=== PATIENT | male | born 1970 | race Caucasian/White ===

== ENCOUNTER 2019-03-01 11:02 | Inpatient (IN) | payer BC ==
[~2019-03-01] VITALS: Ht 182.9 cm; Wt 94.5 kg
[~2019-03-01 11:02] MED LIST: LISINOPRIL10 MG PO
[2019-03-01 11:19] LABS: HEMATOCRIT 44.6 % (42.0-54.0); HEMOGLOBIN 15.5 g/dL (13.5-17.5); MCH 29.7 pg (26.0-34.0); MCHC 34.8 g/dL (31.0-37.0); MCV 85.4 fL (80.0-100.0); MEAN PLATELET VOLUME 10.3 fL (7.4-10.4); RBC 5.22 10x6/uL (4.20-6.10); RDW 13.7 % (11.5-14.5); WBC 5.2 10x3/uL (4.8-10.8)
[2019-03-01 11:55] VITALS: BP 141/95; BMI 28.8
--- NOTE | 2019-03-01 17:19 | NUR ---
REPORT TAKEN FROM Radha MACHUCA RN. PATIENT CARE ASSUMED AT THIS TIME.
[2019-03-01 17:58] VITALS: BP 120/67
[2019-03-01 18:00] VITALS: BP 120/67; Ht 182.9 cm; Wt 94.5 kg
--- NOTE | 2019-03-01 18:00 | NUR ---
RECEIVED TO ROOM 2208 VIA STRETCHER FROM PACU. A/O X3. SKIN INTACT WITHOUT REDNESS EXCEPT 6 SMALL INSERTION SITES TO ABDOMEN. VSS. DENIES NEEDS.
--- NOTE | 2019-03-01 18:30 | NUR ---
C/O NAUSEA. GIVEN 4MG ZOFRAN SLOW IVP FOR SAME. WILL MONITOR. CAFETERIA CASHIER INITIATED WELL. AT BEDSIDE. DENIES FURTHER NEEDS.
--- NOTE | 2019-03-01 19:06 | NUR ---
CONTINUED C/O NAUSEA. GIVEN EMESIS BAG AT THIS TIME. GLASSES PLACED PER . IS STARTING TO FEEL BETTER. REFUSED PHENERGAN AT THIS TIME.
[2019-03-01 21:35] VITALS: BP 98/68
[2019-03-02 04:44] VITALS: BP 107/70
[2019-03-02 05:20] LABS: BASOPHILS 0.1 % (0-2); EOSINOPHILS 0 % (0-7); HEMATOCRIT 40.6 % (42.0-54.0); HEMOGLOBIN 13.8 g/dL (13.5-17.5); IMMATURE GRANULOCYTES 0.2 % (0-5); LYMPHOCYTES 6.9 % (15-50); MCH 28.9 pg (26.0-34.0); MCV 85.1 fL (80.0-100.0); MEAN PLATELET VOLUME 11.1 fL (7.4-10.4); NEUTROPHILS 87.8 % (40-80); PLATELET COUNT 211 10x3/uL (130-400); RBC 4.77 10x6/uL (4.20-6.10); RDW 13.8 % (11.5-14.5)
[2019-03-02 05:32] LABS: WBC 10.5 10x3/uL (4.8-10.8)
[2019-03-02 05:41] LABS: ALBUMIN 3.1 g/dL (3.4-5.0); ALKALINE PHOSPHATASE 36 U/L (46-116); ALT (SGPT) 75 U/L (10-68); BILIRUBIN - TOTAL 0.76 mg/dL (0.2-1.3); CALC OSMOLALITY 276 mosm/kg (275-300); CARBON DIOXIDE 23.3 mmol/L (21.0-32.0); CHLORIDE - SERUM 105 mmol/L (98-107); GLUCOSE 116 mg/dL (74-106); POTASSIUM - SERUM 4.3 mmol/L (3.5-5.1); PROTEIN - SERUM 5.8 g/dL (6.4-8.2); SODIUM 138 mmol/L (136-145); UREA NITROGEN 13 mg/dL (7-18); eGFR NON AFRICAN AMERICAN 84 mL/min (90-120)
--- NOTE | 2019-03-02 07:56 | NUR ---
AMBULATED IN HALLWAY WITH . AWAKE AND ALERT. ORIENTED X3. LUNGS ARE CLEAR BILATERALLY, NO COUGH NOTED. SKIN IS INTACT WITHOUT REDNESS EXCEPT 6 SMALL INSERTION SITES TO ABDOMEN WHICH ARE CLEAN AND DRY. IV TO LEFT HAND IS PATENT WITHOUT REDNESS AT INSERTION SITE. DENIES NEEDS. AT BEDSIDE.
[2019-03-02 08:17] VITALS: BP 115/82
--- NOTE | 2019-03-02 10:15 | NUR ---
OFF UNIT VIA FOR EXRAY.
--- NOTE | 2019-03-02 10:32 | NUR ---
RETURNED FROM EXRAY. DENIES NEEDS.
[2019-03-02] MEDS ORDERED: HYDROCODON-ACE1 EAC7 PO (11:09)
[2019-03-02] MEDS ORDERED: ZOFRAN ODT4 MG/UDTAB PO (11:09)
--- NOTE | 2019-03-02 13:00 | NUR ---
DISCHARGED TO HOME AMBULATORY WITH . DISCHARGE INSTRUCTIONS GIVEN BOTH VERBALLY AND WRITTEN. ALL QUESTIONS ANSWERED. PATIENT AND VERBALIZED UNDERSTANDING OF SAME. IV LEFT HAND D/C WITH CATHETER INTACT. NEEDED PRESCRIPTIONS ESCRIBED TO PHARMACY OF CHOICE. ALL BELONGINGS WITH PATIENT.
== END 2019-03-02 13:41 | disposition home or self-care (01) | DRG 328 ==
LOC: D.OPS 11:02 → D.PAN 13:00 → D.OPS 13:00 → D.MS 17:05 → D.OPS 03-02 12:37 → D.MS 03-02 12:38
PROVIDERS: Anesthesiology; ADMIT Surgery; ATTEND Surgery
PROC: 0BUT4JZ Supplement Diaphragm with Synthetic Substitute, Percutaneous Endoscopic Approach (ICD-10-PCS; principal; 2019-03-01 13:00)
DX: K44.9 Diaphragmatic hernia without obstruction or gangrene (principal); I10 Essential (primary) hypertension

== ENCOUNTER 2019-10-06 05:35 | Day surgery (SDC) | payer BC ==
[~2019-10-06] VITALS: Ht 182.9 cm; Wt 93.4 kg
[~2019-10-06 05:35] MED LIST changes: +HYDROCODON-ACE1 EAC7 PO; +MULTI-DAY VITAM1 TAB PO; +ZOFRAN ODT4 MG/UDTAB PO
[2019-10-06 06:07] LABS: BASOPHILS 0.8 % (0-2); EOSINOPHILS 8.5 % (0-7); HEMATOCRIT 44.1 % (42.0-54.0); HEMOGLOBIN 14.9 g/dL (13.5-17.5); IMMATURE GRANULOCYTES 0.2 % (0-5); LYMPHOCYTES 28.6 % (15-50); MCH 29.9 pg (26.0-34.0); MCHC 33.8 g/dL (31.0-37.0); MCV 88.6 fL (80.0-100.0); MEAN PLATELET VOLUME 10.2 fL (7.4-10.4); MONOCYTES 8.8 % (2-11); NEUTROPHILS 53.1 % (40-80); PLATELET COUNT 223 10x3/uL (130-400); RBC 4.98 10x6/uL (4.20-6.10); RDW 14.4 % (11.5-14.5); WBC 6.1 10x3/uL (4.8-10.8)
[2019-10-06 06:16] LABS: CALC OSMOLALITY 283 mosm/kg (275-300); CALCIUM 8.8 mg/dL (8.5-10.1); CARBON DIOXIDE 27.5 mmol/L (21.0-32.0); CHLORIDE - SERUM 107 mmol/L (98-107); GLUCOSE 101 mg/dL (74-106); POTASSIUM - SERUM 4.2 mmol/L (3.5-5.1); SODIUM 143 mmol/L (136-145); UREA NITROGEN 11 mg/dL (7-18); eGFR NON AFRICAN AMERICAN 84 mL/min (90-120)
[2019-10-06 06:28] VITALS: BP 154/91; Ht 182.9 cm; Wt 93.4 kg
[2019-10-06] MEDS ORDERED: HYDROCODON-ACE1 EAC7 PO (08:41)
--- NOTE | 2019-10-06 09:21 | NUR ---
0915-REC'D FROM RR. DROWSY,EASILY AROUSED WITH VERBAL STIMULI. STERI STRIPS TO ABD X 4 AREAS,ALL CDI. VSS. NO DISTRESS.DENIES PAIN. AT BEDSIDE, CL IN EASY REACH. PER REQUEST, HAS ICE SODA AT BEDSIDE.
--- NOTE | 2019-10-06 10:36 | NUR ---
1025-DISCHARGE CRITERIA MET. REMOVED IV FROM RIGHT HAND WITH CATH INTACT, DISPOSED INTO SHARPS. COVERED SITE WITH BANDAID. REVIEWED POST OPERATIVE INSTRUCTIONS WITH PT AND AT BEDSIDE.VERBALIZED UNDERSTANDING. ESCORTED OUT VIA W/C WITH AWAITING TO DRIVE HOME.
== END 2019-10-06 10:25 | disposition home or self-care (01) ==
LOC: D.OPS 05:35
PROVIDERS: Anesthesiology; ATTEND Surgery
DX: K82.4 Cholesterolosis of gallbladder (principal)